=== PATIENT | male | born 1950 | race Caucasian/White ===

== ENCOUNTER 2021-04-21 14:08 | Outpatient (CLI) | payer MEDICARE, BC | END 2021-04-21 14:09 | disposition home or self-care (01) | LOC: CSHMRI 14:08 | PROVIDERS: ATTEND Orthopaedic Surgery | DX: M23.91 Unspecified internal derangement of right knee (principal); S83.231A Complex tear of medial meniscus, current injury, right knee, initial encounter; S83.421A Sprain of lateral collateral ligament of right knee, initial encounter; S86.811A Strain of other muscle(s) and tendon(s) at lower leg level, right leg, initial encounter; M67.863 Other specified disorders of tendon, right knee; M94.8X6 Other specified disorders of cartilage, lower leg ==